=== PATIENT | female | born 1950 | race Caucasian/White ===

== ENCOUNTER 2019-10-22 05:46 | Inpatient (IN) | payer OTHER ==
[~2019-10-22] VITALS: Ht 162.6 cm; Wt 66.2 kg
[2019-10-22 06:13] VITALS: BP 145/61
[2019-10-22 06:18] LABS: INFLUENZA A ANTIGEN Negative (Negative); INFLUENZA B ANTIGEN Negative (Negative)
[2019-10-22] MEDS ORDERED: SYMBICORT160 MCG/4. INH (06:18)
[2019-10-22 06:19] LABS: ABSOLUTE BASOPHILS 0.1 thou/uL (0.0-0.2); ABSOLUTE EOSINOPHILS 0.3 thou/uL (0.0-0.7); ABSOLUTE LYMPHOCYTES 1.4 thou/uL (0.8-5.3); ABSOLUTE MONOCYTES 1.4 thou/uL (0.0-1.2); ABSOLUTE NEUTROPHILS 6.6 thou/uL (1.6-8.1); EOSINOPHILS 3.1 %; HEMATOCRIT 45.6 % (37.0-47.0); HEMOGLOBIN 15.7 gm/dL (12.0-15.0); LYMPHOCYTES 14.2 %; MCH 30.6 pg (26.0-34.0); MCHC 34.5 g/dL (28.0-37.0); MCV 88.8 fL (80.0-100.0); MONOCYTES 14.5 %; MPV 7.3 fl. (7.2-11.1); NUCLEATED RBCS 0 /100WBC; PLATELET COUNT* 341 thou/uL (150-400); POLYS 67.2 %; RBC 5.13 mil/uL (4.20-5.00); WBC 9.8 thou/uL (4.0-11.0)
[2019-10-22] MEDS ORDERED: PROAIR HFA8.5 GM INH (06:19)
[2019-10-22] MEDS ORDERED: LEVO-T100 MCG PO (06:19)
[2019-10-22] MEDS ORDERED: VERAPAMIL ER120 MG PO (06:20)
[2019-10-22] MEDS ORDERED: TRIAMTERENE/HCT1 CA1 PO (06:20)
[2019-10-22 06:32] LABS: PROTIME 10.7 Seconds (9.20-11.50)
[2019-10-22 06:45] LABS: CALCIUM 9.5 mg/dL (8.5-10.1); CREATININE 0.8 mg/dL (0.6-1.3); POTASSIUM 3.1 mmol/L (3.5-5.1)
[2019-10-22 06:56] LABS: ALBUMIN 3.3 g/dL (3.4-5.0); TOTAL PROTEIN 6.9 g/dL (6.4-8.2)
[2019-10-22 08:10] LABS: URINE BILIRUBIN NEGATIVE (Negative); URINE BLOOD TRACE (Negative); URINE CLARITY CLEAR; URINE COLOR YELLOW; URINE GLUCOSE-RANDOM NEGATIVE (Negative); URINE KETONES NEGATIVE (Negative); URINE LEUKOCYTES-REFLEX NEGATIVE (Negative); URINE NITRITE-REFLEX NEGATIVE (Negative); URINE PROTEIN NEGATIVE (Negative); URINE SPECIFIC GRAVITY <= 1.005 (1.005-1.030); URINE UROBILINOGEN 0.2 E.U./dl (0.2-1.0)
[2019-10-22 09:30] VITALS: BP 116/69
[2019-10-22 09:55] VITALS: BP 119/62
[2019-10-22 11:36] VITALS: BP 128/67
--- NOTE | 2019-10-22 14:12 | EKG ---
[place] [address] ELECTROCARDIOGRAM REPORT Name: MITCHELL CONNER Room: [place] [address] ADM IN [facility]#: [id number] Admission: 10/22/19 Attend Phys: Toan Ferraro MD Discharge: Date of : 50 Report #: [id number] THIS REPORT FOR: //name// [facility] ED Test Date: 2019-10-22 Test Time: 06:00:57 Pat Name: MITCHELL UBALDO Department: Room: [facility] Gender: F Show Card Writer: : 1950 Requested By: Layla Granda Order Number: [id number] MD: Giorgio Currie Measurements Intervals [place] Rate: 86 P: 67 NC: 157 QRS: 106 QRSD: 95 T: 51 QT: 362 QTc: 433 Interpretive Statements Sinus rhythm Probable left atrial enlargement incomplete RBBB No previous ECG available for comparison Electronically Signed On 10-22-2019 14:12:12 [employer] by Giorgio Currie [email or web address] <ELECTRONICALLY SIGNED> By: Giorgio Currie MD, [facility] 10/22/19 1412 0600 9 Giorgio Currie MD, FACC /EPI
[2019-10-22 14:40] LABS: CALCIUM 9.7 mg/dL (8.5-10.1); MAGNESIUM 2.2 mg/dL (1.8-2.4)
[2019-10-22 14:41] LABS: CREATININE 1.9 mg/dL (0.6-1.3); POTASSIUM 5.1 mmol/L (3.5-5.1)
[2019-10-22 16:15] VITALS: BP 141/72
--- NOTE | 2019-10-22 16:59 | 2DMMODE ---
[place] [address] 2 D/M-MODE ECHOCARDIOGRAM Name: MITCHELL CONNER Room: [address] IN .R.#: [id number] Admission: 10/22/19 Attend Phys: Toan Ferraro, Discharge: Date of : 50 Date of Service: 10/22/19 1659 Report #: [id number] THIS REPORT FOR: //name// APPROVED REPORT Study performed: 10/22/2019 16:12:01 EXAM: Comprehensive 2D, Doppler, and color-flow Echocardiogram Patient Location: Bedside BSA: 1.68 HR: 84 bpm BP: 128/67 mmHg Other Information Study Quality: Fair Indications Pulmonary Hypertension 2D Dimensions IVSd: 18.65 (7-11mm) LVOT Diam: 20.99 (18-24mm) LVDd: 33.79 mm PWd: 10.17 (7-11mm) Ascending Ao: 33.80 (22-36mm) LVDs: 29.35 (25-40mm) Aortic Root: 29.45 mm Volumes Left Atrial Volume (Systole) LA ESV Index: 17.20 mL/m2 Aortic Valve AoV Peak Tim.: 1.48 m/s AO Peak Gr.: 8.78 mmHg LVOT Max P.30 mmHg AO Mean Gr.: 4.87 mmHg LVOT Mean P.10 mmHg LVOT Max V: 1.25 m/s AO V2 VTI: 29.06 cm LVOT Mean V: 0.80 m/s SHAHZAD (VTI): 3.22 cm2 LVOT V1 VTI: 27.05 cm Mitral Valve E/A Ratio: 0.65 MV Decel. Time: 271.42 ms MV E Max Tim.: 0.68 m/s MV PHT: 78.71 ms MVA (PHT): 2.79 [place] [address] 2 D/M-MODE ECHOCARDIOGRAM Name: MITCHELL CONNER Room: [address] IN R.#: [id number] Admission: 10/22/19 Attend Phys: Toan Ferraro, Discharge: Date of : 50 Date of Service: 10/22/19 1659 Report #: [id number] TDI E/Lateral E': 7.56 E/Medial E': 8.50 Medial E' Tim.: 0.08 m/s Lateral E' Tim.: 0.09 m/s Pulmonary Valve PV Peak Tim.: 0.86 m/s PV Peak Gr.: 2.99 mmHg Tricuspid Valve RAP Estimate: 5.00 mmHg TR Peak Gr.: 38.55 mmHg RVSP: 43.55 mmHg PA Pressure: 43.55 mmHg Left Ventricle The left ventricle is normal size. There is normal LV segmental wall motion. There is normal left ventricular wall thickness. Left ventricular systolic function is normal. LVEF is 60-65%. Grade I - abnormal relaxation pattern. Right Ventricle The right ventricle is normal size. The right ventricular systolic function is normal. Atria The left atrium size is normal. The right atrium size is normal. Aortic Valve The aortic valve is normal in structure. No aortic regurgitation is present. There is no aortic valvular stenosis. Mitral Valve The mitral valve is normal in structure. There is no mitral valve regurgitation noted. No evidence of mitral valve stenosis. Tricuspid Valve The tricuspid valve is normal in structure. Trace tricuspid regurgitation. The RVSP is 40-45 mmHg. Pulmonic Valve The pulmonary valve is normal in structure. There is no pulmonic valvular regurgitation. Great Vessels The aortic root is normal in size. IVC [place] [address] 2 D/M-MODE ECHOCARDIOGRAM Name: MITCHELL CONNER Room: [address] IN [facility]#: [id number] Admission: 10/22/19 Attend Phys: Toan Ferraro, Discharge: Date of : 50 Date of Service: 10/22/19 1659 Report #: [id number] collapses >50% with inspiration. Pericardium There is no pericardial effusion. <Conclusion> The left ventricle is normal size. There is normal left ventricular wall thickness. Left ventricular systolic function is normal. LVEF is 60-65%. Grade I - abnormal relaxation pattern. Trace tricuspid regurgitation. The RVSP is 40-45 mmHg. IVC is normal in size and collapses >50% with inspiration. <ELECTRONICALLY SIGNED> By: Grady Millan MD, FACC 10/22/191658 58 58 Grady Millan MD, FACC /INF
[2019-10-22 19:50] VITALS: BP 124/64
[2019-10-23] VITALS: BP 126/54
[2019-10-23 04:00] VITALS: BP 133/78
--- NOTE | 2019-10-23 07:19 | CON ---
[address] [address] CONSULTATION Name: MITCHELL CONNER Room: [address] IN [place].R.#: [id number] Admission: 10/22/19 Attend Phys: Toan Ferraro MD Discharge: Date of : 50 Report #: [id number] THIS REPORT FOR: //name// CC: Toan Ferraro Alcon Juarez DATE OF SERVICE: 10/22/2019 INFECTIOUS DISEASE CONSULTATION ATTENDING PHYSICIAN: Toan Ferraro MD REASON FOR EVALUATION: Severe community-acquired pneumonia. HISTORY OF PRESENT ILLNESS: Chart reviewed, patient examined. This is a 69-year-old with history of asthma, admitted through the Emergency Room with complaints of progressive dyspnea in particular the last 24-48 hours, associated fevers, cough that was moderately productive. She describes it as thick yellow sputum. She notes onset of symptoms roughly a month ago, had developed some sinus related complaints with drainage, felt all related to allergies/asthma and one point was treated with corticosteroids without improvement. Denies significant chest discomfort. She has not had any GI related complaints today, although she had some nausea over the last 24 hours with concomitant anorexia. Oral intake has been marginal as of late. She was treated empirically with ceftriaxone and azithromycin with initial doses, now is on levofloxacin. Influenza antigen testing was negative. Chest x-ray showed some scarring without clear infiltrates. CT of the chest done, no acute process and pulmonary fibrosis, no evidence of pulmonary embolus. Urinalysis is unremarkable. Sed rate of 14. She is mildly dyspneic at this point, maintained on 3-4 liters nasal cannula oxygen. Hemodynamically, she is relatively stable. ALLERGIES: SULFA, CARVEDILOL. CURRENT MEDICATIONS: Include levothyroxine, acetylcysteine, methylprednisolone, levofloxacin, p.r.n. analgesics and antiemetics. PAST MEDICAL HISTORY: History of asthma and distant history of pneumonitis. SOCIAL HISTORY: Nonsmoker, no ethanol, no illicit drug use. FAMILY HISTORY: Noncontributory. REVIEW OF SYSTEMS: Otherwise unremarkable with exception of the above. PHYSICAL EXAMINATION: GENERAL: She is alert, cooperative, appropriate. She is [id number] [address] CONSULTATION Name: MITCHELL CONNER Room: [address]#: [id number] Admission: 10/22/19 Attend Phys: Toan Ferraro MD Discharge: Date of : 50 Report #: [id number] respiratory distress. She is lucid, appears reasonably well nourished. VITAL SIGNS: Temperature 97.8, T-max 99, pulse 84, respirations 17, and blood pressure 128/67. SKIN: Warm, dry, no rashes. HEENT: Normocephalic. Extraocular muscles intact. NECK: Supple. Does have nasal cannula oxygen in place. LUNGS: Bilateral wheezes, few scattered crackles at the bases. HEART: Regular. Borderline tachycardic. I do not appreciate a murmur. ABDOMEN: Soft, nontender, nondistended. EXTREMITIES: No cyanosis. GENITOURINARY AND RECTAL: Deferred. LABORATORY DATA: Sed rate of 14. Electrolytes: Sodium 132, potassium 5.1, chloride 96, bicarbonate 23, anion gap of 13, BUN and creatinine 37 and 1.9, is up from 0.8. Urinalysis unremarkable. CT of the chest, some scarring and fibrosis, no acute cardiopulmonary process. Her LFTs unremarkable. Albumin of 3.3. Total protein 6.9, estimated GFR of 71. Troponin less than 0.06. Lactic acid 1.2. Influenza antigen was negative. ASSESSMENT AND PLAN: Pneumonitis, perhaps is a complication of underlying reactive airway disease. Given the fevers, worsening clinical picture over the course of last 24 hours, would assume bacterial etiology, cannot exclude virus. However, we will continue the empiric therapy with levofloxacin. She has had both the pneumococcal immunizations in recent years as well as influenza. We will monitor expectantly. Wean off support as allowed. Add incentive spirometry. Check sputum culture. <ELECTRONICALLY SIGNED> By: Demond Johnson MD 10/23/19 0719 1557 2110Josantos Johnson MD /nt
[2019-10-23 08:00] VITALS: BP 144/77
[2019-10-23 13:08] VITALS: BP 135/69
[2019-10-23 18:45] VITALS: BP 133/86
[2019-10-23 20:10] VITALS: BP 127/72
[2019-10-24] VITALS (8 sets, daily range): BP systolic 103–184; BP diastolic 56–70
[2019-10-24] MEDS ORDERED: LEVAQUIN 750 M750 MG PO (13:18)
[2019-10-24] MEDS ORDERED: PREDNISONE 20 M20 MG PO (13:20)
[2019-10-26 12:09] LABS: ANA INTERPRETATION Negative (Negative)
== END 2019-10-24 15:03 | disposition home or self-care (01) | DRG 193 ==
LOC: M.ERS 05:46 → M.2W 06:38 → M.TBA-ER 06:38 → M.2W 09:55
PROVIDERS: Emergency Medicine; Internal Medicine; Internal Medicine Pulmonary Disease; ADMIT Internal Medicine
DX: J18.9 Pneumonia, unspecified organism (principal); J96.01 Acute respiratory failure with hypoxia; J44.1 Chronic obstructive pulmonary disease with (acute) exacerbation; J44.0 Chronic obstructive pulmonary disease with (acute) lower respiratory infection; J45.901 Unspecified asthma with (acute) exacerbation; E03.9 Hypothyroidism, unspecified; J84.10 Pulmonary fibrosis, unspecified; I27.20 Pulmonary hypertension, unspecified; D75.1 Secondary polycythemia; Z80.0 Family history of malignant neoplasm of digestive organs; Z82.49 Family history of ischemic heart disease and other diseases of the circulatory system; Z88.2 Allergy status to sulfonamides; Z88.8 Allergy status to other drugs, medicaments and biological substances; Z90.49 Acquired absence of other specified parts of digestive tract

== ENCOUNTER → 2019-12-03 | Outpatient (CLI) | payer OTHER ==
[~2019-12-03] MED LIST: LEVAQUIN 750 M750 MG PO; LEVO-T100 MCG PO; PREDNISONE 20 M20 MG PO; PROAIR HFA8.5 GM INH; SYMBICORT160 MCG/4. INH; TRIAMTERENE/HCT1 CA1 PO; VERAPAMIL ER120 MG PO
[2019-12-03 09:04] LABS: CALCIUM 9.5 mg/dL (8.5-10.1); CREATININE 0.8 mg/dL (0.6-1.3); POTASSIUM 3.5 mmol/L (3.5-5.1)
== END ==
LOC: M.CT 08:22
DX: J18.9 Pneumonia, unspecified organism (principal); Z88.2 Allergy status to sulfonamides; Z88.8 Allergy status to other drugs, medicaments and biological substances